=== PATIENT | male | born 1960 | race Caucasian/White ===

== ENCOUNTER 2019-12-12 07:43 | Outpatient (CLI) | payer BC, OTHER ==
[2019-12-12 18:01] LABS: #Basophils 0.1 thou/uL (0.0-0.2); #Eosinphils 0.1 thou/uL (0.0-0.7); #Lymphocytes 2.5 thou/uL (1.20-3.40); #Monocytes 0.5 thou/uL (0.11-0.59); #Neutrophils 4.6 thou/uL (1.40-6.50); %Basophils 0.8 % (0.0-1.0); %Eosinophils 1.8 % (0.0-10.0); %Lymphocytes 31.8 % (21.0-51.0); %Monocytes 6.4 % (0.0-10.0); %Neutrophils 59.2 % (42.0-75.0); Hemoglobin 14.1 g/dL (14.0-18.0); Mean Corpuscular HGB CONC 33.1 g/dL (32.0-36.0); Mean Corpuscular Hemoglobin 32.2 pg (27.0-31.0); Mean Corpuscular Volume 97.3 fL (78.0-98.0); Mean Platelet Volume 11.1 fL (7.4-10.4); Platelet Count 156 thou/uL (130-400); RBC Distribution Width 11.5 % (11.5-14.5); Red Blood Cell (RBC) Count 4.37 mill/uL (4.70-6.10); White Blood Cell (WBC) Count 7.8 thou/uL (4.8-10.8)
[2019-12-12 18:26] LABS: Anion Gap 12 mmol/L (10-20); BUN (Urea Nitrogen) 22 mg/dL (8.4-25.7); Calc. Creatinine Clearance 0 mL/min (70-130); Calcium 9.6 mg/dL (7.8-10.44); Carbon Dioxide 26 mmol/L (22-29); Chloride 105 mmol/L (98-107); Estimated GFR-MDRD 53; Glucose 92 mg/dL (70-105); Potassium 4.1 mmol/L (3.5-5.1); Sodium 139 mmol/L (136-145)
[2019-12-13 12:20] LABS: SARS-CoV-2 MS2 Positive; SARS-CoV-2 N Gene Negative; SARS-CoV-2 S Gene Negative; SARS-CoV-2 orf1ab Negative
== END 2019-12-12 07:44 | disposition home or self-care (01) ==
LOC: LABBT 07:43
PROVIDERS: ATTEND Orthopaedic Surgery
DX: Z01.818 Encounter for other preprocedural examination (principal); Z11.59 Encounter for screening for other viral diseases; S43.431A Superior glenoid labrum lesion of right shoulder, initial encounter; M75.51 Bursitis of right shoulder
CPT/HCPCS: 80048; 85025; 87635; 93005; 93010; U0003

== ENCOUNTER 2019-12-15 07:24 | Day surgery (SDC) | payer BC ==
[2019-12-15] MEDS ORDERED: Midazolam HCl 2 mg/2 ml Vial ONE (08:05)
[2019-12-15] MEDS ORDERED: Fentanyl 100 MCG/2 ML VIAL ONE ×2 (08:05→10:19)
[2019-12-15] MEDS ORDERED: Lidocaine 1% (PF) 30 ML VIAL ONE (08:05)
[2019-12-15] MEDS ORDERED: Ropivacaine 0.2% HCl/PF (40 MG/20 ML VIAL) ONE (09:41)
[2019-12-15] MEDS ORDERED: Glycopyrrolate 0.2 MG/ML 5 ML SYRINGE ONE (09:41)
[2019-12-15] MEDS ORDERED: PROPOFOL 200 MG/20 ML VIAL ONE (09:41)
[2019-12-15] MEDS ORDERED: Ondansetron PF 4 MG/2 ML Vial ONE (09:41)
[2019-12-15] MEDS ORDERED: Lidocaine 1% PF 5 ML VIAL ONE (09:41)
[2019-12-15] MEDS ORDERED: Rocuronium Bromide 10 MG/ML (10ML VIAL) ONE (09:41)
[2019-12-15] MEDS ORDERED: Ropivacaine 0.5% HCl/PF (150 MG/30 ML VIAL) ONE (09:41)
[2019-12-15] MEDS ORDERED: Promethazine HCl 25 MG/ML VIAL IM PRN (10:30)
[2019-12-15] MEDS ORDERED: Ondansetron PF 4 MG/2 ML Vial IVP PRN (10:30)
[2019-12-15] MEDS ORDERED: traMADol HCl 50 MG TAB PO PRN ×2 (10:30)
[2019-12-15] MEDS ORDERED: Zolpidem Tartrate 5 MG TAB PO PRN (10:30)
[2019-12-15] MEDS ORDERED: Ropivacaine 0.2% 550 ML 550 ML NERVE BLCK SCH (10:30)
[2019-12-15] MEDS ORDERED: Fentanyl 100 MCG/2 ML VIAL IV PRN (10:31)
[2019-12-15] MEDS ORDERED: Lidocaine 1% w/Epinephrine 1:100K 20 ML VIAL ONE (11:14)
[2019-12-15] MEDS ORDERED: Promethazine HCl 25 MG/ML VIAL ONE (13:29)
--- NOTE | 2019-12-16 10:31 | OP ---
DATE OF PROCEDURE: 12/15/2019 PREOPERATIVE DIAGNOSES: 1. Right paralabral cyst with potential labral tear. 2. Bursitis/impingement. POSTOPERATIVE DIAGNOSES: 1. Right paralabral cyst with potential labral tear. 2. Bursitis/impingement. PROCEDURE PERFORMED: Limited debridement. SIPHONER: None. ANESTHESIA: . The patient received general endotracheal intubation with interscalene block. ESTIMATED BLOOD LOSS: Less than 20 mL. TOURNIQUET TIME: None. IMPLANTS: None. ANTIBIOTICS: Ancef 2 g. COMPLICATIONS: None. INDICATIONS FOR PROCEDURE: Mr. Mccullough is a 59-year-old male presenting with right shoulder pain. It has been present for 1 to 2 years. Previous injection provided little relief only about a day. He has pain with reaching behind his body and overhead, localized in subacromial space. I discussed with the patient risks and benefits of a MRI evidence of some paralabral cysts at the 6 o'clock position. No definitive tears, and bursitis. Discussed the risks and benefits of debridement of the paralabral cyst, evaluation of biceps, rotator cuff, and bursectomy with possible decompression. He understood the risks and benefits include pain, scar, bleeding, infection, damage to vital structures, decreased range of motion and strength, continued pain despite surgical intervention, need for further surgeries, loss of life or limb. The patient understood the risks and benefits and elected to proceed. Time-out was performed designating the patient's right upper extremity as the operative site based on site, consents, and marking. DESCRIPTION OF PROCEDURE: After time-out was performed, confirming the right upper extremity as the operative site based on site, consents, and marking. I made a posterior working portal, looking in the joint as well as the use of spinal needle to localize within the rotator interval. The humerus had some mild cartilage wear, but no full-thickness defects and no significant fibrillations on the glenoid. There were some sites that I could visualize the spots where the paralabral cysts were, which started at about the 3 o'clock position and worked around the 6 o'clock position on his right shoulder. I used a shaver to shave the cartilage there and just used cautery to lightly touch this tissue, a few spot welded as I moved in the spots to try to seal off the cyst. I could not find a big, deep cavern. It was essentially adhered. I did not repair it because the patient has no instability and has never dislocated his shoulder. I was quite concerned about it being too stiff. I looked at the sublabral foramen, which was just peeled off which I cleaned a little tearing off there at the biceps but good through its core. Subscap had just about a 2% partial tearing from overlying fascia versus fibers at the top. I looked at the glenoid, look at his humerus, which showed no full-thickness cartilage defects. I viewed the rotator cuff and saw no tears and moved subacromially. Did a bursectomy completely exposed the rotator cuff. I saw no tearing noted throughout any spot of the cuff. I did not take any bone, I just decompressed the subcutaneous tissues and coracoacromial ligament anteriorly. Completed all my pictures, washed, removed as much fluid as possible and closed with 2-0 nylon. The patient will begin range of motion as tolerated. I will see him in my clinic back in 2 weeks for suture removal. Job ID: [id number]
== END 2019-12-15 14:35 | disposition home or self-care (01) ==
LOC: SDC 07:24
PROVIDERS: ATTEND Orthopaedic Surgery
PROC: 0RBJ4ZZ Excision of Right Shoulder Joint, Percutaneous Endoscopic Approach (ICD-10-PCS; principal; 2019-12-15)
DX: M71.311 Other bursal cyst, right shoulder (principal); M25.811 Other specified joint disorders, right shoulder; M75.51 Bursitis of right shoulder; K21.9 Gastro-esophageal reflux disease without esophagitis; Z79.899 Other long term (current) drug therapy; Z88.5 Allergy status to narcotic agent; Z88.8 Allergy status to other drugs, medicaments and biological substances
CPT/HCPCS: A4306; J0690; J2001; J2250; J2405; J2550; J2704; J2795; J3010

== ENCOUNTER 2020-03-20 07:53 | Outpatient (CLI) | payer BC, OTHER ==
[2020-03-20 14:13] LABS: #Basophils 0.1 thou/uL (0.0-0.2); #Eosinphils 0.3 thou/uL (0.0-0.7); #Lymphocytes 2.3 thou/uL (1.20-3.40); #Monocytes 0.5 thou/uL (0.11-0.59); #Neutrophils 4.1 thou/uL (1.40-6.50); %Basophils 1.1 % (0.0-1.0); %Eosinophils 3.9 % (0.0-10.0); %Lymphocytes 31.5 % (21.0-51.0); %Neutrophils 56.5 % (42.0-75.0); Hemoglobin 15.5 g/dL (14.0-18.0); Mean Corpuscular HGB CONC 34.3 g/dL (32.0-36.0); Mean Corpuscular Hemoglobin 33.9 pg (27.0-31.0); Mean Corpuscular Volume 98.6 fL (78.0-98.0); Mean Platelet Volume 10.7 fL (7.4-10.4); Platelet Count 159 thou/uL (130-400); Red Blood Cell (RBC) Count 4.57 mill/uL (4.70-6.10); White Blood Cell (WBC) Count 7.2 thou/uL (4.8-10.8)
[2020-03-21 10:31] LABS: SARS-CoV-2 MS2 Positive; SARS-CoV-2 N Gene Negative; SARS-CoV-2 S Gene Negative; SARS-CoV-2 by NAA Not Detected (NotDetected); SARS-CoV-2 orf1ab Negative
== END 2020-03-20 07:54 | disposition home or self-care (01) ==
LOC: LABBT 07:53
PROVIDERS: ATTEND Orthopaedic Surgery
DX: Z20.828 Contact with and (suspected) exposure to other viral communicable diseases (principal)
CPT/HCPCS: 85025; 87635; U0003

== ENCOUNTER 2020-03-23 11:29 | Day surgery (SDC) | payer BC ==
[2020-03-22 13:37] VITALS: BMI 24.0
[~2020-03-23 11:29] MED LIST: Dexamethasone 20 MG/5 ML VIAL ONE; Ondansetron PF 4 MG/2 ML Vial ONE
[2020-03-23] MEDS ORDERED: Fentanyl 100 MCG/2 ML VIAL ONE (12:01)
[2020-03-23] MEDS ORDERED: Midazolam HCl 2 mg/2 ml Vial ONE (12:01)
[2020-03-23] MEDS ORDERED: EPINEPHrine 1 MG/ML AMP ONE (12:08)
[2020-03-23] MEDS ORDERED: Bupivacaine PF 0.5% 30 ML VIAL ONE (12:08)
--- NOTE | 2020-03-23 14:50 | OP ---
DATE OF PROCEDURE: 03/23/2020 PREOPERATIVE DIAGNOSIS: Right cubital tunnel syndrome. POSTOPERATIVE DIAGNOSIS: Right cubital tunnel syndrome. PROCEDURE PERFORMED: Right open cubital tunnel release. BLOCKER METAL BASE: None. ANESTHESIOLOGIST: Lonnie Estrada MD ANESTHESIA: The patient received an LMA with 8 mL of 0.25% Marcaine with epinephrine. ESTIMATED BLOOD LOSS: 20 mL. TOURNIQUET TIME: 19 minutes at 300 mmHg. ANTIBIOTICS: Ancef. COMPLICATIONS: None. HISTORY OF PRESENT ILLNESS: Mr. Mccullough is a 60-year-old male with symptoms consistent with cubital tunnel, radiation of his hand, numbness in his index and small finger, pain with radiation of his elbow, positive Tinel's. I discussed with him the risks and benefits of right cubital tunnel release to include pain, scar, bleeding, infection, damage to vital structures, decreased range of motion and strength, need for further surgeries, failure of release, damage to nerve, and loss of life or limb. He understood the risks and benefits and elected to proceed. DESCRIPTION OF PROCEDURE: Time-out was performed designating the patient's right upper extremity as the operative site based on site, consents, and marking. After time-out, the patient's right upper extremity was prepped and draped in sterile fashion. Tourniquet was left open for 19 minutes. An incision was made over the medial aspect of the medial epicondyle down to skin and bluntly dissected to find the nerve. The patient actually had an anconeus epitrochlearis muscle plane that I found after I dissected down the border of the triceps, came to that muscular plane, completely dissecting the transverse fibers, the final linear fibers near the ECU. I ensured the fascia was released and the nerve was released distally as well as proximally. I ensured there were no adhesions probing down towards intermuscular septum ensuring that the nerve was released about a fingerbreadth proximally. I ensured the entire Hotron fascia was released. I washed. I cauterized the muscle belly that had been transected. I then closed with 2-0 Vicryl and 3-0 nylon. I injected 8 mL of Marcaine in line and placed the patient in soft tissue dressing. The patient will begin range of motion and follow up me in about 10 to 14 days. We will follow him in-house. Job ID: [id number] [facility]
== END 2020-03-23 15:05 | disposition home or self-care (01) ==
LOC: SDC 11:29
PROVIDERS: ATTEND Orthopaedic Surgery
PROC: 01N40ZZ Release Ulnar Nerve, Open Approach (ICD-10-PCS; principal; 2020-03-23)
DX: G56.21 Lesion of ulnar nerve, right upper limb (principal); K21.9 Gastro-esophageal reflux disease without esophagitis; Z79.899 Other long term (current) drug therapy; Z88.5 Allergy status to narcotic agent; Z88.8 Allergy status to other drugs, medicaments and biological substances
CPT/HCPCS: J0171; J0690; J1100; J2250; J2405; J3010; S0020

== ENCOUNTER 2023-11-28 09:55 | Outpatient (CLI) | payer BC | END 2023-11-28 09:56 | disposition home or self-care (01) | LOC: SCSMRI 09:55 | PROVIDERS: ATTEND Physician Assistant | DX: H90.A21 Sensorineural hearing loss, unilateral, right ear, with restricted hearing on the contralateral side (principal) | CPT/HCPCS: 70553; 82565 ==